=== PATIENT | female | born 1955 | race Caucasian/White ===

== ENCOUNTER 2023-07-24 14:48 | Emergency (ER) | payer MEDICARE, OTHER, SELFPAY ==
[2023-07-24 14:53] VITALS: BP 176/98
[2023-07-24 15:16] LABS: % Basophils 0.5 % (0-2); % Eosinophils 0.9 % (0-6); % Immature Granulocytes 0.4 % (0-0.5); % Lymphocytes 20.1 % (20.5-51.1); % Monocytes 6.2 % (1.7-9.3); % Neutrophils 71.9 % (42.2-75.2); Absolute Eosinophils 0.1 10^3/uL (0-0.7); Absolute Lymphocytes 1.1 10^3/uL (1.2-3.4); Absolute Monocytes 0.4 10^3/uL (0.1-0.6); Absolute Neutrophils 4.1 10^3/uL (1.4-6.5); Hematocrit 40.6 % (37.0-47.0); Hemoglobin 14.7 g/dL (12.0-16.0); Mean Corp Hgb Conc. 36.2 g/dL (33.0-37.0); Mean Corpuscular Hgb 30.2 pg (27.0-31.0); Mean Corpuscular Volume 83.4 fL (81.0-99.0); Mean Platelet Volume 9.3 fL (7.4-10.4); Nucleated Red Blood Cells % 0 %; Platelet Count 181 10^3/uL (130-400); Red Blood Cell Count 4.87 10^6/uL (4.20-5.40); Red Cell Dist. Width 12.8 % (11.5-14.5); White Blood Cell Count 5.6 10^3/uL (4.8-10.8)
[2023-07-24 15:38] LABS: ALT (SGPT) 22 U/L (0-35); AST (SGOT) 26 U/L (14-36); Albumin 4.3 g/dl (3.5-5.0); Alkaline Phosphatase 93 U/L (38-126); Blood Urea Nitrogen 16 mg/dl (7-17); Calcium 8.9 mg/dl (8.4-10.2); Carbon Dioxide 26 mmol/L (22-30); Chloride 104 mmol/L (98-107); Glucose 92 mg/dl (70-99); Potassium 3.7 mmol/L (3.5-5.1); Sodium 136 mmol/L (135-145); Total Bilirubin 1.3 mg/dl (0.2-1.3); Total Protein 6.6 g/dl (6.3-8.2); eGFR > 60.00
[2023-07-24 15:41] LABS: Troponin I < 0.012 ng/ml
[2023-07-24 16:18] VITALS: BP 158/75
[2023-07-24 17:00] VITALS: BP 154/86
--- NOTE | 2023-07-24 17:26 | ED.GENMED ---
History of Present Illness
General
Chief Complaint: Chest Pain
Source: patient
Exam Limitations: none
Time Seen by Provider: 07/24/23 16:17
Nursing documentation reviewed up to this point in time: agreed with
Travel History
Have you had any contact with someone who has COVID-19?: No
Do you have any symptoms of coronavirus? Fever > 100 degrees, chills, cough, shortness of breath, sore throat, loss of taste or smell, muscle aches, or headache?: No
History of Present Illness
History of Present Illness:
Patient is a 67-year-old female with past medical history of asthma and high cholesterol who presents to the ER for evaluation. Patient has had left-sided chest pain into her arm for the past few weeks�1 month. She believes it is consistently
there on a mild level but worsens at times. Today she was shopping and felt more discomfort and then noticed she had some pain in her left neck which is what prompted her to come to the ER today. She has no associated shortness of breath with
this. She denies any injury with this. She denies any recent fever chills cough.
She does not smoke. No prior history of DVT PE. No lower extremity edema. No recent travel.
No family history cardiac disease.
She is very active and plays pickle ball and does not have any symptoms during activity
Review of Systems
Review of Systems
Allergies reviewed?: Yes
All Other Systems: ROS reviewed and negative except as documented in HPI and ROS
Constitutional: Reports no symptoms
Respiratory: Denies trouble breathing
Cardiac: Reports chest pain; Denies diaphoresis, palpitations or syncope
ABD/GI: Reports no symptoms; Denies nausea or vomiting
: Reports no symptoms
Musculoskeletal: Reports no symptoms
Skin: Reports no symptoms
Neurological: Reports no symptoms
Psychiatric: Reports no symptoms
Phy Exam
General Physical Exam
General Presentation: no apparent distress
General age: appears stated age
General Skin: warm and dry
General Habitus: normal
General Mental: alert
General Hydration: appears well hydrated
Cardiovascular Exam
Cardiovascular Exam: regular rate/rhythm, no murmur and normal peripheral pulses
Pulmonary Exam
Pulmonary Exam: lungs clear and no respiratory distress
Neurological Exam
Neurological Exam: alert and oriented x3
Musculoskeletal Exam
Musculoskeletal Exam: full ROM
Skin Exam
Skin Exam: normal color and warm/dry
Psychiatric Exam
Psychiatric Exam: normal mood/affect
Scores
Heart Score for Chest Pain Patients
STEMI patient?: Not applicable
Course
Orders/Labs/Results
Orders:
Orders
07/24/23 14:56
Electrocardiogram (*1) Urgent
Reason for Study: Chest Pain
EKG- Treatment ONCE
07/24/23 15:04
Complete Blood Count/With Diff Urgent
Comprehensive Metabolic Panel Urgent
Troponin I Urgent
07/24/23 17:39
Chest [CR Chest - 2 Views ] Urgent
Comment:
Reason For Exam: cp
07/24/23 17:47
DDimer [D-Dimer] Urgent
Troponin I Urgent
Abnormal Lab Results
07/24/23
15:04
Absolute Lymphs (auto) 1.1 L 10^3/uL
(1.2-3.4)
Lymphocytes % 20.1 L %
(20.5-51.1)
07/24/23 15:04
07/24/23 15:04
Vital Signs
Initial and Last Documented VS:
Initial Vital Signs
Temp Pulse Resp BP Pulse Ox
99.0 F 77 18 176/98 97
07/24/23 14:53 07/24/23 14:53 07/24/23 14:53 07/24/23 14:53 07/24/23 14:53
Last Documented Vital Signs
Temp Pulse Resp BP Pulse Ox
99.0 F 72 15 142/82 97
07/24/23 14:53 07/24/23 19:04 07/24/23 19:04 07/24/23 19:04 07/24/23 19:04
MDM/Problems Addressed
Differential Diagnosis Includes:
Not limited to ACS less likely D-dimer, musculoskeletal
MDM/Problems Addressed:
Patient has had symptoms of chest discomfort for the past 1 month. Today she felt some discomfort in her neck which have prompted her to come to the ER. She has no cardiac history. She does mention history of questionable hx of mitral valve
prolapse. She reports she last had an echo when she lived 10 years ago. She presents awake alert no acute distress. She was monitored here and has been asymptomatic. She had 2 cardiac troponins normal D-dimer unremarkable EKG and unremarkable
chest x-ray.
Patient now lives in this area will DC with chest pain hotline.
Chronic conditions affecting care:
Hyperlipidemia
*Radiology
Radiology exam reviewed: radiology read reviewed
*Pulse Oximetry
Patient hypoxic: no
*EKG
Interpreted by ED Provider?: Yes
Comparison EKG: no comparison EKG present
Heart Rate: 71
Rate: normal
Rhythm: sinus
Ischemia: no ischemia
*Critical Care Note
Total Time (30-74mins, 75-104mins- exclusive of procedures): Not Applicable
ED Attending Note
-
Portions of this chart may have been created with voice recognition software.� Occasional wrong word or��sound alike� substitutions may have occurred due to the inherent limitations of voice recognition software.
Discharge Plan
Departure
Patient Disposition: Home (Routine Discharge)
Date of Disposition: 07/24/23
Time of Disposition: 20:32
Patient with high blood pressure during this ER visit?: Yes
Condition: Fair
Covid-19: Not Applicable
Discharge Problem:
Chest pain
Instructions: Chest Pain CBC Follow Up
Referrals:
Vladimir,Andrez, MD [Active] -
Tila Francisco DO [Family Provider] -
Activity Restrictions/Additional Instructions:
As discussed you are placed on the chest pain hotline which means you should receive a phone call in the next several days from cardiology however if you do not please give them a call to schedule an appointment as soon as possible. Return however
if any worsening of symptoms
Interventions
Interventions:
*Risk Screen - Suicide Last Done: 07/24/23 14:53
*General Assessment Last Done: 07/24/23 14:53
*Neglect/Abuse Screening Last Done: 07/24/23 14:53
ED- Fall Risk Assessment Last Done: 07/24/23 16:00
*ED COVID-19 Vaccine History Last Done: 07/24/23 14:53
ED- Cardiac Assessment Last Done: 07/24/23 16:00
[2023-07-24 18:00] VITALS: BP 144/75
[2023-07-24 18:12] LABS: D-Dimer < 0.27 ug/mlFEU (0.00-0.50)
[2023-07-24 18:18] LABS: Troponin I < 0.012 ng/ml
[2023-07-24 19:04] VITALS: BP 142/82
== END 2023-07-24 20:45 | disposition home or self-care (01) ==
LOC: EMR 14:48
PROVIDERS: Emergency Medicine; Nurse Practitioner; EMERGENCY PHYSICIAN Emergency Medicine; FAMILY PHYSICIAN Internal Medicine
DX: R07.89 Other chest pain (principal); M54.2 Cervicalgia; E78.00 Pure hypercholesterolemia, unspecified; R03.0 Elevated blood-pressure reading, without diagnosis of hypertension
CPT/HCPCS: 99285; 71046; 80053; 84484; 85025; 85379; 93005

== ENCOUNTER → 2023-07-26 15:07 | Outpatient (REF) | payer MEDICARE, OTHER, SELFPAY | LOC: RCS 15:07 | PROVIDERS: ATTENDING PHYSICIAN Internal Medicine Cardiovascular Disease; FAMILY PHYSICIAN Internal Medicine | DX: R07.2 Precordial pain (principal) | CPT/HCPCS: 93017 ==

== ENCOUNTER → 2023-07-28 08:30 | Outpatient (REF) | payer MEDICARE, OTHER, SELFPAY | LOC: DHCBC/DCA 08:30 | PROVIDERS: ATTENDING PHYSICIAN Internal Medicine Cardiovascular Disease; FAMILY PHYSICIAN Internal Medicine | DX: R07.9 Chest pain, unspecified (principal); I44.7 Left bundle-branch block, unspecified | CPT/HCPCS: 78452; 93017; A9500; J2785 ==

== ENCOUNTER → 2025-05-16 07:32 | Outpatient (REF) | payer MEDICARE, OTHER, SELFPAY | LOC: PAVMRI 07:32 | PROVIDERS: ATTENDING PHYSICIAN Orthopaedic Surgery; FAMILY PHYSICIAN Internal Medicine | DX: M54.50 Low back pain, unspecified (principal) | CPT/HCPCS: 72148 ==